=== PATIENT | female | born 1990 | race American Indian/Alaskan Native ===

== ENCOUNTER 2017-07-21 19:30 | Emergency (ER) | payer OTHER ==
[2017-07-22] MEDS ORDERED: TYLENOL PO ONE (00:58)
[2017-07-22] MEDS ORDERED: TYLENOL ONE (01:00)
[2017-07-22 02:08] VITALS: BP 112/76
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
[2017-07-22] MEDS ORDERED: ZOFRAN ODT PO ONE (04:02)
[2017-07-22] MEDS ORDERED: NORCO 5/325 PO ONE (04:02)
== END 2017-07-22 04:36 | disposition home or self-care (01) ==
LOC: ED 19:30
DX: G44.319 Acute post-traumatic headache, not intractable (principal); V49.49XA Driver injured in collision with other motor vehicles in traffic accident, initial encounter; Y93.89 Activity, other specified; Y92.89 Other specified places as the place of occurrence of the external cause; Y99.8 Other external cause status
CPT/HCPCS: 70450; Q0162

== ENCOUNTER 2017-11-23 14:07 | Emergency (ER) | payer OTHER ==
[2017-11-23 15:06] VITALS: BP 111/67
[2017-11-23] MEDS ORDERED: ZOFRAN ODT ONE (15:14)
[2017-11-23] MEDS ORDERED: ZOFRAN ODT PO ONE (15:23)
[2017-11-23 15:35] LABS: Bacteria,Urine 1+ /HPF (Negative); Bilirubin,Urine NEG (Negative); Blood,Urine NEG (Negative); Color,Urine Yellow (Yellow); Mucus,Urine 3+ /HPF; Protein,Urine <15 mg/dL mg/dL (Negative); Urobilinogen,Urine < 2.0 mg/dL (<2.0)
[2017-11-23 15:37] LABS: HCG Qualitative,Urine Negative (Negative)
[2017-11-23] MEDS ORDERED: NACL 0.9% 1000 ML 1,000 ML IV ONE (16:51)
[2017-11-23] MEDS ORDERED: ZOFRAN IV ONE (16:51)
[2017-11-23] MEDS ORDERED: TORADOL IV ONE (16:52)
--- NOTE | 2017-11-23 17:24 | Emergency Department Report ---
Chief Complaint: Abdominal Pain Stated Complaint: VOMITING Time Seen by Provider: 11/23/17 16:27 - HPI History of Present Illness: The patient is a 27 -year-old female whom presents for evaluation of abdominal pain. The patient reports upper abdominal pain since 9 AM this morning, consciousness onset, cramping and burning in quality, moderate to severe, exacerbated with vomiting. She has experienced nausea and multiple episodes of nonbilious, nonbloody emesis as well. She shares that she consumed alcohol last night and believes that she aggravated her stomach due to the alcohol consumption. The patient denies fever, chills, night sweats, diarrhea, blood in the stool, dark tarry stool, dysuria, hematuria, flank pain, genital discharge, inability to pass flatus. - Exam Vital Signs: Vital Signs 11/23/17 15:02 Temperature 98.3 F Pulse Rate 89 Respiratory 18 Rate Blood Pressure 111/67 O2 Sat by Pulse 97 Oximetry MSE screening note: Focused history and physical exam performed. Due to findings the following was ordered: ED Disposition for MSE Condition: Stable Instructions: Abdominal Pain (ED) Referrals: PRIMARY CARE, [Primary Care Provider] - 3-5 Days
[2017-11-23 17:35] LABS: Hematocrit 39.4 % (30.3-42.9); Hemoglobin 13.4 gm/dl (10.1-14.3); Mean Corpuscular HGB Conc 34 % (30-34); Mean Corpuscular Hemoglobin 31 pg (28-32); Mean Corpuscular Volume 90 fl (79-97); Platelet Count 247 K/mm3 (140-440); Red Blood Count 4.36 M/mm3 (3.65-5.03); Red Cell Distribution Width 13.5 % (13.2-15.2)
[2017-11-23 17:50] LABS: Alanine Aminotransferase 16 units/L (7-56); BUN/Creatinine Ratio 20; Blood Urea Nitrogen 12 mg/dL (7-17); Hemolysis Index 4; Lipase 16 units/L (13-60)
[2017-11-23 18:06] LABS: Basophils % (Manual) 0 % (0.0-1.8); Eosinophils % (Manual) 0 % (0.0-4.3); Total Cells Counted 100
[2017-11-23 18:07] LABS: RBC Morphology Normal
--- NOTE | 2017-11-23 19:47 | Emergency Department Report ---
Vomiting/Diarrhea - HPI Chief Complaint: Abdominal Pain Stated Complaint: VOMITING Time Seen by Provider: 11/23/17 16:27 Duration: Today Severity: moderate Nausea/Vomiting Severity: Mild Diarrhea Severity: Mild Pain Severity: None Symptoms: Yes Watery Diarrhea, Yes Able to Tolerate Fluids, No Bloody diarrhea, No Fever, No Recent Unusual Foods, No Recent Untreated Water, No Recent use of Antibiotics, No Family w/ Similar Symptoms, No Contacts w/ Similar Symptoms, No Rash, No Hematuria, No Recent URI Symptoms Other History: This is a 27 y.o. femlae that presents with nausea and vomiting since this morning. Patient reports going out last night having a few alcoholic beverages and feeling fine until she woke up this morning and drunk some orange juice that was sitting on the side of the bed for 3 days. She began to have generalized abdominal cramping with shrap pains, nausea, vomiting and diarrhea. She is currently not in pain. She was not able to hold anything down. She passed several soft wateray stools and experienced several episodes of vomiting. Denies abdominal pain, fever, chills, and discharge. ED Review of Systems ROS: Stated complaint: VOMITING Other details as noted in HPI Constitutional: denies: chills, fever, malaise Respiratory: denies: cough, orthopnea, shortness of breath, wheezing Cardiovascular: denies: chest pain, palpitations, edema, syncope Gastrointestinal: nausea, vomiting, diarrhea. denies: abdominal pain, constipation, hematemesis Skin: denies: rash, lesions Neurological: denies: headache, weakness, paresthesias Psychiatric: denies: anxiety, depression ED Past Medical Hx - Past Medical History Previous Medical History?: No - Surgical History Past Surgical History?: No - Social History Smoking Status: Never Smoker Substance Use Type: Alcohol - Medications Home Medications: Home Medications Medication Instructions Recorded Confirmed Last Taken Type Acetaminophen/Codeine [Tylenol 1 tab PO Q6H PRN #14 tab 07/22/17 Unknown Rx /Codeine # 3 tab] Ciprofloxacin HCl [Cipro] 500 mg PO BID 5 Days #10 tablet 11/23/17 Unknown Rx Metoclopramide HCl [Reglan TAB] 5 mg PO TID PRN #15 tablet 11/23/17 Unknown Rx Vomiting Diarrhea Exam - Exam General: Vital signs noted. No distress. Alert and acting appropriately. HEENT: Yes Pharyngeal Erythema, Yes Moist Mucous Membranes, No Pharyngeal Exudates, No Rhinorrhea, No Conjuctival Injection, No Frontal Tenderness, No Maxillary Tenderness Neck: No Adenopathy, No Rigidity Lungs: Yes Clear Lung Sounds, Yes Good Air Exchange, No Wheezes, No Stridor, No Cough, No Nasal Flaring, No Retractions, No Use of Accessory Muscles Heart exam: Regular: Yes, Murmur: No, Tachycardia: No Abdomen: Tenderness: No, Peritoneal Signs: No, Distention: No, Hyperactive Bowel sounds: No Skin exam: Rash: No, Edema: No, Normal turgor: Yes Neurologic: Alert and oriented, no deficits. Musculoskeletal: Unremarkable. ED Course Vital Signs 11/23/17 15:02 Temperature 98.3 F Pulse Rate 89 Respiratory 18 Rate Blood Pressure 111/67 O2 Sat by Pulse 97 Oximetry ED Medical Decision Making - Lab Data Result diagrams: 11/23/17 17:25 11/23/17 17:25 - Medical Decision Making 27 y.o. female that presents with nausea and vomiting since this morning. Abdominal pain resolved. Patient examined by me, no distress noted. Vitals stable. Given zofran 4 mg ODT once, zofran 4 mg IV, toradol 30 mg, and normal saline IV 1L bolus. Obtained CBC, CMP, UA, & HCG, WBC elevated. Start cipro and metoclopramide for gastroenteritist. F/U with PCP or [facility] [place] 24-72 hours. Discharged home. Critical care attestation.: If time is entered above; I have spent that time in minutes in the direct care of this critically ill patient, excluding procedure time. ED Disposition Clinical Impression: Gastroenteritis Nausea and vomiting Qualifiers: Vomiting type: unspecified Vomiting Intractability: non-intractable Qualified Code(s): R11.2 - Nausea with vomiting, unspecified Disposition: DC-01 TO HOME OR SELFCARE Is pt being admited?: No Does the pt Need Aspirin: No Condition: Stable Instructions: Gastroenteritis (ED), Acute Nausea and Vomiting (ED) Additional Instructions: Increase fluid intake. Frequent hand washing is important to reduce spread. Prompt disinfection of contaminated surfaces with household chlorine bleach- based nail expert and washing of soiled clothing and bedding should be advised. If food or water is thought to be contaminated, it should be avoided. Drinks high in sugars such as carbonated soft drinks, fruit juice, and highly sugared liquids should be avoided. Prescriptions: Ciprofloxacin HCl [Cipro] 500 mg PO BID 5 Days #10 tablet Metoclopramide HCl [Reglan TAB] 5 mg PO TID PRN #15 tablet PRN Reason: Nausea And Vomiting Referrals: [facility] [Outside] - 3-5 Days [facility] [Outside] - 3-5 Days [facility] [Outside] - 3-5 Days Time of Disposition: 19:59 Print Language: INDONESIAN
== END 2017-11-23 20:14 | disposition home or self-care (01) ==
LOC: ED 14:07
DX: K52.9 Noninfective gastroenteritis and colitis, unspecified (principal); R11.2 Nausea with vomiting, unspecified
CPT/HCPCS: 36415; 80053; 81001; 81025; 83690; 85007; 85025; 96361; 96374; 96375; 99283; J1885; J2405; J7030; Q0162